=== PATIENT | male | born 1970 | race Caucasian/White ===

== ENCOUNTER 2018-03-14 13:01 | Emergency (ER) | payer SELFPAY ==
[2018-03-14 13:13] VITALS: BP 144/98; PULSE 71; TEMP 98; BMI 40.1
--- NOTE | 2018-03-14 15:12 | PDOC ---
History of Present Illness - General Chief Complaint: Blood Pressure Problem Stated Complaint: HEADACHE, HIGH BP Time Seen by Provider: 03/14/18 15:11 - History of Present Illness Initial Comments: 03/14/18 17:16 The patient is a 47 year old male with a history of HTN who presents for evaluation of headache. The patient reports a 5 day history of a diffuse poorly described headache that has not responded to tylenol, aleive, exedrine prompting his presentation to the ED for further evaluation. He noted that his blood pressure was a little elevated to day as well despite taking his home lisinopril. He otherwise denies fevers, chills, SOB, chest pain, nausea, vomiting, abdominal pain, numbness, tingling, weakness, or changes with urination or bowel movements. Past History - Past Medical History Allergies/Adverse Reactions: Allergies Allergy/AdvReac Type Severity Reaction Status Date / Time No Known Allergies Allergy Verified 03/14/18 13:13 Home Medications: Ambulatory Orders Dextroamphetamine/Amphetamine [Adderall Xr 30 mg Capsule] 30 mg PO DAILY Lisinopril [Prinivil] 20 mg PO DAILY 03/14/18 Vortioxetine Hydrobromide [Trintellix] 20 mg PO DAILY 03/14/18 COPD: No - Suicide/Smoking/Psychosocial Hx Smoking History: Never smoked Have you smoked in the past 12 months: No Information on smoking cessation initiated: No Hx Alcohol Use: No Drug/Substance Use Hx: No Substance Use Type: None Review of Systems - Review of Systems Comments:: 03/14/18 20:12 Constitutional: No fevers, chills, fatigue, malaise HEENT: No Rhinorrhea, nasal congestion, visual changes Cardiovascular: No chest pain, syncope, palpitations, lightheadedness Respiratory: No Cough, SOB, Hemoptysis, Gastrointestinal: No Abdominal pain, Nausea, Vomiting, Constipation, Diarrhea, Melena Genitourinary: No Dysuria, Frequency, Urgency, Hesitancy, Hematuria, Flank pain Musculoskeletal: No Myalgia, arthralgia Skin: No rashes, itching, bruising, pallor Neurologic: Headache. No Dizziness, Numbness, Weakness, or Tingling Psychiatric: No Hallucinations. No SI or HI *Physical Exam - Vital Signs Last Vital Signs Temp Pulse Resp BP Pulse Ox 98.0 F 71 16 144/98 100 03/14/18 13:12 03/14/18 13:12 03/14/18 13:12 03/14/18 13:12 03/14/18 13:12 - Physical Exam Comments: 03/14/18 20:12 General Appearance: Nourished. No Apparent Distress HEENT: EOMI, DREA. No Pharyngeal Erythema, Tonsillar Exudate, Tonsillar Erythema Neck: No Cervical Lymphadenopathy Respiratory/Chest: Lungs Clear, Normal Breath Sounds. No Crackles, Rales, Rhonchi, Wheezing Cardiovascular: Regular Rhythm, Regular Rate. No Murmur, Gallops, Rubs Gastrointestinal/Abdominal: Normal Bowel Sounds, Soft. No Guarding, Rebound, Tenderness Musculoskeletal: No CVA Tenderness Extremity: Normal Capillary Refill Integumentary: Normal Color, Dry, Warm Neurologic: ribbon inker II-XII NML intact, Fully Oriented, Alert, Normal Mood/Affect, Normal Response, Motor Strength 5/5. Normal Finger to Nose and Heel to [place] ED Treatment Course - LABORATORY CBC & Chemistry Diagram: 03/14/18 15:30 03/14/18 15:30 Medical Decision Making - Medical Decision Making 03/14/18 20:13 The patient is a 47 year old male with a history of HTN who presents for evaluation of headache. Differential includes but is not limited to: Infectious , Intracranial process, migraine, metabolic derangement. Given the patient's history and physical exam, we obtained a cbc, cmp, head ct. CBC, cmp were unremarkable. Head CT is unremarkable as read by our radiologist. We treated the patient with iv fluids, benadryl, reglan, iv tylenol and the patient reported mild improvement in his symptoms. We are comfortable discharging the patient home with neurology follow up. We discussed the results, plan, and return precautions with the patient who voiced understanding and is agreeable with the plan. *DC/Admit/Observation/Transfer Diagnosis at time of Disposition: Headache Qualifiers: Headache type: unspecified Headache chronicity pattern: unspecified pattern Intractability: not intractable Qualified Code(s): R51 - Headache - Discharge Dispostion Disposition: HOME Condition at time of disposition: Stable - Referrals Referrals: Reina Yung MD [Primary Care Provider] - Wu Humphries MD [Staff Physician] - - Patient Instructions Printed Discharge Instructions: DI for High Blood Pressure, DI for Headache Additional Instructions: Please return to the ER if you experience concerning or worsening symptoms including any worsening headache or weakness. Your lab results and head ct were normal here in the ER. Please call to schedule a follow up appointment with our neurologist Dr. Humphries within 2-3 days to discuss your ER visit and further management of your symptoms. - Post Discharge Activity
[2018-03-14] MEDS ORDERED: METOCLOPRAMIDE HCL INJECTION 10 MG/2 ML VIAL IVPUSH ONE (15:20)
[2018-03-14] MEDS ORDERED: SODIUM CHLORIDE 1,000 ML IV STA (15:20)
[2018-03-14] MEDS ORDERED: ACETAMINOPHEN 1000 MG/100 ML VIAL (NON FORMULARY) IVPB ONE (15:20)
[2018-03-14] MEDS ORDERED: ACETAMINOPHEN INJECTION 100 ML IVPB ONE (15:53)
[2018-03-14] MEDS ORDERED: METOCLOPRAMIDE HCL INJECTION 10 MG/2 ML VIAL ONE (15:53)
[2018-03-14 16:24] LABS: BASO % 0.6 % (0-2.0); EOS % 0.7 % (0-4.5); HEMATOCRIT 42.7 % (35.4-49); HEMOGLOBIN 14.4 GM/dL (11.7-16.9); MCH 30.1 pg (25.7-33.7); MCHC 33.8 g/dl (32.0-35.9); MEAN PLT VOLUME 8.4 fl (7.5-11.1); MONO % 6.3 % (3.8-10.2); NEUT % 72.4 % (42.8-82.8); PLATELET COUNT 295 K/MM3 (134-434); RDW 14.4 % (11.9-15.9); WHITE BLOOD COUNT 10.5 K/mm3 (4.0-10.0)
--- NOTE | 2018-03-14 16:24 | PDOC ---
Attending Attestation - Resident Resident Name: Darrel Schneider - ED Attending Attestation I have performed the following: I have examined & evaluated the patient, The case was reviewed & discussed with the resident, I agree w/resident's findings & plan, Exceptions are as noted - HPI HPI: 03/14/18 16:18 Mr Pruett is a 47 yo M who presents to the ER with a complaint of headache He was present in the ER bedside to his friend Patient states that he has had a headache for the past few days He awoke with a headache several days ago Described as tight, bandlike (+) nausea no vomiting No head trauma - Physicial Exam PE: 03/14/18 16:19 GENERAL: The patient is in no acute distress. EYES: PERRLA, EOMI, sclera anicteric, conjunctiva clear. NECK: Normal range of motion, supple, no nuchal rigidity LUNGS: Breath sounds equal, clear to auscultation bilaterally. No wheezes, and no crackles. HEART:Regular rate and rhythm, normal S1 and S2 without murmur, rub or gallop. ABDOMEN: Soft, nontender EXTREMITIES: Normal range of motion NEUROLOGICAL: Cranial nerves II through XII grossly intact. Normal speech. No focal neurological deficits. MUSCULOSKELETAL: Back non-tender to palpation, no CVA tenderness SKIN: Warm, Dry, normal turgor, no rashes or lesions noted. - Medical Decision Making 03/14/18 16:24 47 yo M presenting to the ER with a complaint of headache He awoke with these symptoms Pt in neurologically intact will check labs CT head Tylenol, Reglan, Benadryl, IVF Re Assess Signed out to Dr Rincon
[2018-03-14 16:48] LABS: ALBUMIN 4.7 g/dl (3.4-5.0); ALK PHOS 68 U/L (45-117); ANION GAP 10 MMOL/L (8-16); BILIRUBIN,TOTAL 0.4 mg/dL (0.2-1.0); BLOOD UREA NITROGEN 13 mg/dL (7-18); CALCIUM 9.6 mg/dL (8.5-10.1); CHLORIDE 104 mmol/L (98-107); CO2 27 mmol/L (21-32); CREATININE 0.8 mg/dL (0.7-1.3); GLUCOSE,RANDOM 81 mg/dL (74-106); POTASSIUM 4.3 mmol/L (3.5-5.1); SGOT/AST 18 U/L (15-37); SGPT/ALT 45 U/L (12-78); SODIUM 141 mmol/L (136-145); TOT PROT 7.9 g/dl (6.4-8.2)
== END 2018-03-14 18:58 | disposition home or self-care (01) ==
LOC: JER 13:01
PROC: 3E033GC Introduction of Other Therapeutic Substance into Peripheral Vein, Percutaneous Approach (ICD-10-PCS; principal; 2018-03-14)
PROC: 3E033GC Introduction of Other Therapeutic Substance into Peripheral Vein, Percutaneous Approach (ICD-10-PCS; 2018-03-14)
PROC: 3E033NZ Introduction of Analgesics, Hypnotics, Sedatives into Peripheral Vein, Percutaneous Approach (ICD-10-PCS; 2018-03-14)
DX: R51 Headache (principal); I10 Essential (primary) hypertension
CPT/HCPCS: 36415; 70450-TC; 80053; 85025; 99282-25; J0131; J7030

== ENCOUNTER 2019-02-08 18:19 | Emergency (ER) | payer OTHER ==
--- NOTE | 2019-02-08 18:28 | PDOC ---
Rapid Medical Evaluation Time Seen by Provider: 02/08/19 18:23 Medical Evaluation: Allergies Allergy/AdvReac Type Severity Reaction Status Date / Time No Known Allergies Allergy Verified 03/14/18 13:13 02/08/19 18:23 I have performed a brief in-person evaluation of this patient. The patient presents with a chief complaint of: 48 yo M w/ a h/o HTN sent by PMD for high blood pressure. Pt was having a headache, checked his BP which was high 183/125, he called his PMD who told him to come to the ED. Pt took clonidine 0.2mg at around 6 pm. Now c/o mild 2/10 SAMUEL on the top of his head. NO other complaints Pertinent physical exam findings: Pt with anxious affect. The patient will proceed to the ED for further evaluation.
[2019-02-08 18:32] VITALS: TEMP 98.2; BMI 39.5
[2019-02-08] MEDS ORDERED: METOCLOPRAMIDE HCL INJECTION 10 MG/2 ML VIAL IVPUSH ONE (19:11)
[2019-02-08] MEDS ORDERED: ACETAMINOPHEN 1000 MG/100 ML VIAL (NON FORMULARY) IVPB ONE (19:12)
--- NOTE | 2019-02-08 19:49 | PDOC ---
Documentation entered by Debbie Ordoñez SCRIBE, acting as scribe for Opal Segura DO. Opal Segura DO: This documentation has been prepared by the Smita diaz Xhesika, SCRIBE, under my direction and personally reviewed by me in its entirety. I confirm that the documentation accurately reflects all work, treatment, procedures, and medical decision making performed by me. History of Present Illness - General Chief Complaint: Blood Pressure Problem Stated Complaint: SENT BY DOCTOR Time Seen by Provider: 02/08/19 18:23 History Source: Patient Exam Limitations: No Limitations - History of Present Illness Initial Comments: 02/08/19 19:36 The patient is a 48 year old male with a significant PMH of HTN who presents to the emergency department for HTN and headache. The patient states he endorsed a headache, checked his BP and it was 175/118 at 1pm and shortly after it was 185/125. Patient states he took 2 Clonidine at 6pm with no relief. Patient States he then called his PCP and was advised to come to the ED for further evaluation. Patient notes his BP at baseline is 140/90. Patient denies any changes in vision. Denies numbness or tingling in arms. The patient denies chest pain, shortness of breath, and dizziness. Denies fever , chills, cough, nausea, vomiting, diarrhea and constipation. Denies dysuria, frequency, urgency and hematuria. Allergies: Morphine PCP: Reina Kemp I Past History - Past Medical History Allergies/Adverse Reactions: Allergies Allergy/AdvReac Type Severity Reaction Status Date / Time morphine AdvReac Verified 02/08/19 18:23 Home Medications: Ambulatory Orders Dextroamphetamine/Amphetamine [Adderall Xr 30 mg Capsule] 30 mg PO DAILY Lisinopril [Prinivil] 20 mg PO DAILY 03/14/18 Vortioxetine Hydrobromide [Trintellix] 20 mg PO DAILY 03/14/18 COPD: No HTN: Yes - Immunization History Immunization Up to Date: Yes - Suicide/Smoking/Psychosocial Hx Smoking History: Never smoked Have you smoked in the past 12 months: No Hx Alcohol Use: No Drug/Substance Use Hx: No Substance Use Type: None Review of Systems - Review of Systems Able to Perform ROS?: Yes Comments:: 02/08/19 19:37 GENERAL/CONSTITUTIONAL: No fever or chills. No weakness. HEAD, EYES, EARS, NOSE AND THROAT: No change in vision. No ear pain or discharge. No sore throat. CARDIOVASCULAR: (+) HTN. No chest pain or shortness of breath. RESPIRATORY: No cough, wheezing, or hemoptysis. GASTROINTESTINAL: No nausea, vomiting, diarrhea or constipation. GENITOURINARY: No dysuria, frequency, or change in urination. MUSCULOSKELETAL: No joint or muscle swelling or pain. No neck or back pain. SKIN: No rash NEUROLOGIC: (+) headache. No vertigo, loss of consciousness, or change in strength/sensation. ENDOCRINE:No increased thirst. No abnormal weight change. HEMATOLOGIC/LYMPHATIC: No anemia, easy bleeding, or history of blood clots. ALLERGIC/IMMUNOLOGIC: No hives or skin allergy. *Physical Exam - Vital Signs Last Vital Signs Temp Pulse Resp BP Pulse Ox 98.2 F 74 18 172/113 H 97 02/08/19 18:23 02/08/19 18:23 02/08/19 18:23 02/08/19 18:23 02/08/19 18:23 - Physical Exam Comments: 02/08/19 19:37 GENERAL: Awake, alert, and fully oriented, in no acute distress HEAD: No signs of trauma EYES: PERRLA, EOMI, sclera anicteric, conjunctiva clear ENT: Auricles normal inspection, hearing grossly normal, nares patent, oropharynx clear without exudates. Moist mucosa NECK: Normal ROM, supple, no lymphadenopathy, JVD, or masses LUNGS: Breath sounds equal, clear to auscultation bilaterally. No wheezes, and no crackles HEART: Regular rate and rhythm, normal S1 and S2, no murmurs, rubs or gallops ABDOMEN: Soft, nontender, normoactive bowel sounds. No guarding, no rebound. No masses EXTREMITIES: Normal range of motion, no edema. No clubbing or cyanosis. No cords, erythema, or tenderness NEUROLOGICAL: Cranial nerves II through XII grossly intact. Normal speech, normal gait SKIN: Warm, Dry, normal turgor, no rashes or lesions noted. Heart Score/ECG Review - ECG Intrepretation Comment:: 02/08/19 19:40 sinus at 66, nl axis, nl interval, rsr' in v1, qrs 102, no acute st/t wave findings ED Treatment Course - LABORATORY CBC & Chemistry Diagram: 02/08/19 19:45 02/08/19 19:45 - RADIOLOGY Radiology Studies Ordered: Category Date Time Status HEAD CT WITHOUT CONTRAST [CT] Stat CT Scan 02/08/19 19:10 Ordered CHEST X-RAY PORTABLE* [RAD] Stat Radiology 02/08/19 19:11 Ordered Medical Decision Making - Medical Decision Making 02/08/19 19:41 a/p: 48yo male with hx of htn with elevated bp today -has mathew today but without neuro symptoms/findings -no cp/sob -no blurred vision -no abd pain, no n/v/d -no changes in diet, compliant with meds and took 2 extra clonidine -will send labs, head ct, ekg, cxr, ua -will monitor and reassess -reglan and tylenol 02/08/19 21:[address] neg repeat bp improved labs pending 02/08/19 21:36 trop neg 02/08/19 22:00 cxr clear 02/08/19 22:06 discussed labs and imaging with the patient pt feeling better bp improved stable for dc to home and follow up with PMD. *DC/Admit/Observation/Transfer Diagnosis at time of Disposition: Headache, Uncontrolled hypertension - Discharge Dispostion Disposition: HOME Condition at time of disposition: Stable Decision to Admit order: No - Referrals Referrals: Reina Yung MD [Primary Care Provider] - - Patient Instructions Printed Discharge Instructions: DI for High Blood Pressure, How to Monitor Your Blood Pressure at Home Additional Instructions: Please continue to take all medications as prescribed. Please return to the ED with any further concerns or complaints. Please continue to take all blood pressure medications as prescribed. Please call your PMD for a repeat blood pressure check. Please return to the ED with any further concerns or complaints. - Post Discharge Activity - Attestations Physician Attestion: 02/08/19 22:10 I, Dr. Opal Segura, DO, attest that this document has been prepared under my direction and personally reviewed by me in its entirety. I further attest, that it accurately reflects all work, treatment, procedures and medical decision -making performed by me.
[2019-02-08 20:01] LABS: BASO % 0.7 % (0-2.0); EOS % 1.5 % (0-4.5); HEMATOCRIT 43.8 % (35.4-49); LYMPH % 22.1 % (8-40); MCH 30.9 pg (25.7-33.7); MCHC 34.2 g/dl (32.0-35.9); MEAN CELL VOLUME 90.3 fl (80-96); MEAN PLT VOLUME 7.9 fl (7.5-11.1); NEUT % 65.7 % (42.8-82.8); PLATELET COUNT 264 K/MM3 (134-434); RBC 4.85 M/mm3 (4.00-5.60); RDW 14.6 % (11.9-15.9); WHITE BLOOD COUNT 10.2 K/mm3 (4.0-10.0)
[2019-02-08] MEDS ORDERED: ACETAMINOPHEN INJECTION 100 ML IVPB ONE (20:02)
[2019-02-08] MEDS ORDERED: METOCLOPRAMIDE HCL INJECTION 10 MG/2 ML VIAL ONE (20:02)
[2019-02-08 20:15] LABS: INR 0.88 (0.83-1.09); PROTHROMBIN TIME (PATIENT) 10.4 SEC (9.7-13.0)
[2019-02-08 21:33] LABS: ALBUMIN 3.8 g/dl (3.4-5.0); BILIRUBIN,TOTAL 0.3 mg/dL (0.2-1); BLOOD UREA NITROGEN 11.2 mg/dL (7-18); CALCIUM 9.4 mg/dL (8.5-10.1); N-TERMINAL BNP 80.7 pg/ml (5-125); POTASSIUM 4.5 mmol/L (3.5-5.1); TOT PROT 6.8 g/dl (6.4-8.2)
[2019-02-08] MEDS ORDERED: IBUPROFEN 600 MG TABLET (FP) PO ONE ×2 (22:04→22:20)
[2019-02-08 22:58] VITALS: BP 145/92; PULSE 66
--- NOTE | 2019-02-09 14:11 | EKG ---
Test Reason : Blood Pressure : / mmHG Vent. Rate : 066 BPM Atrial Rate : 066 BPM P-R Int : 176 ms QRS Dur : 102 ms QT Int : 386 ms P-R-T Axes : 023 028 061 degrees QTc Int : 404 ms NORMAL SINUS RHYTHM RSR' OR QR PATTERN IN V1 SUGGESTS RIGHT VENTRICULAR CONDUCTION DELAY NO PREVIOUS ECGS AVAILABLE Confirmed by MARBELLA SWAN MD ([id number]) on 02/09/2019 2:11:17 PM Referred By: Confirmed By:MARBELLA SWAN MD
== END 2019-02-08 22:20 | disposition home or self-care (01) ==
LOC: JER 18:19
PROC: 3E033GC Introduction of Other Therapeutic Substance into Peripheral Vein, Percutaneous Approach (ICD-10-PCS; principal; 2019-02-08)
PROC: 3E033NZ Introduction of Analgesics, Hypnotics, Sedatives into Peripheral Vein, Percutaneous Approach (ICD-10-PCS; 2019-02-08)
DX: I10 Essential (primary) hypertension (principal)
CPT/HCPCS: 36415; 70450-TC; 71045-TC-FY; 80053; 82550; 82553; 83880; 84484; 85025; 85610; 93005; 93010; 99283-25; J0131

== ENCOUNTER 2020-06-22 16:36 | Emergency (ER) | payer OTHER ==
[2020-06-22 16:44] VITALS: BMI 33.1
[2020-06-22] MEDS ORDERED: ACETAMINOPHEN INJECTION 100 ML IVPB ONE (18:11)
[2020-06-22] MEDS ORDERED: ONDANSETRON 4 MG/2 ML VIAL ONE (18:11)
[2020-06-22] MEDS ORDERED: ONDANSETRON 4 MG/2 ML VIAL IVPUSH ONE (18:12)
[2020-06-22] MEDS ORDERED: ACETAMINOPHEN 1000 MG/100 ML VIAL (NON FORMULARY) IVPB ONE (18:12)
[2020-06-22 18:28] VITALS: TEMP 98
[2020-06-22 18:30] LABS: BASO % 0.5 % (0-2.0); EOS % 0.9 % (0-4.5); HEMATOCRIT 40.9 % (35.4-49); HEMOGLOBIN 13.7 GM/dL (11.7-16.9); LYMPH % 11.4 % (8-40); MCH 30.7 pg (25.7-33.7); MCHC 33.4 g/dl (32.0-35.9); MEAN CELL VOLUME 91.8 fl (80-96); MEAN PLT VOLUME 7.5 fl (7.5-11.1); MONO % 7.3 % (3.8-10.2); NEUT % 79.9 % (42.8-82.8); PLATELET COUNT 250 K/MM3 (134-434); RBC 4.45 M/mm3 (4.00-5.60); RDW 13.8 % (11.9-15.9)
[2020-06-22 18:39] LABS: CHLORIDE 104 mmol/L (98-107); POTASSIUM 4.6 mmol/L (3.5-5.1); SODIUM 141 mmol/L (136-145)
[2020-06-22 18:41] LABS: CALCIUM 9.5 mg/dL (8.5-10.1)
[2020-06-22 18:42] LABS: ANION GAP 7 MMOL/L (8-16); BLOOD UREA NITROGEN 14.2 mg/dL (7-18); CO2 31 mmol/L (21-32); GLUCOSE,RANDOM 88 mg/dL (74-106)
[2020-06-22 18:45] LABS: CREATININE 1.2 mg/dL (0.55-1.3); SGOT/AST 27 U/L (15-37)
[2020-06-22 18:46] LABS: BILIRUBIN,TOTAL 0.3 mg/dL (0.2-1)
[2020-06-22 18:47] LABS: TOT PROT 6.9 g/dl (6.4-8.2)
[2020-06-22 18:48] LABS: ALK PHOS 61 U/L (45-117)
[2020-06-22 18:54] LABS: SGPT/ALT 39 U/L (13-61)
[2020-06-22 19:41] VITALS: BP 152/109; PULSE 83
[2020-06-22 19:59] LABS: EPI CELLS 3 /uL (0-25.1); HYALINE CASTS 0 /uL (0-3.1); URINE APPEARANCE CLEAR; URINE BACTERIA 10 /uL (0-1359); URINE BILIRUBIN NEGATIVE (NEGATIVE); URINE COLOR YELLOW; URINE GLUCOSE (UA) NEGATIVE (NEGATIVE); URINE KETONE NEGATIVE (NEGATIVE); URINE LEUK ESTERASE NEGATIVE (NEGATIVE); URINE NITRITE NEGATIVE (NEGATIVE); URINE PROTEIN NEGATIVE (NEGATIVE); URINE RBC 51 /uL (0-23.9); URINE UROBILINOGEN 0.2 mg/dL (0.2-1.0); URINE WBC 6 /uL (0-25.8)
== END 2020-06-22 19:56 | disposition home or self-care (01) ==
LOC: JER 16:36
PROC: 3E0333Z Introduction of Anti-inflammatory into Peripheral Vein, Percutaneous Approach (ICD-10-PCS; principal; 2020-06-22)
PROC: 3E033GC Introduction of Other Therapeutic Substance into Peripheral Vein, Percutaneous Approach (ICD-10-PCS; 2020-06-22)
DX: I10 Essential (primary) hypertension (principal)
CPT/HCPCS: 36415; 80053; 81003; 82550; 82553; 82962; 84484; 85025; 93005; 93010; 99284-25; J0131

== ENCOUNTER 2021-03-31 16:44 | Inpatient (IN) | payer OTHER ==
[2021-03-31] MEDS ORDERED: METOCLOPRAMIDE HCL INJECTION 10 MG/2 ML VIAL IVPUSH ONE (18:44)
[2021-03-31] MEDS ORDERED: METOCLOPRAMIDE HCL INJECTION 10 MG/2 ML VIAL ONE (18:49)
[2021-03-31 19:06] LABS: VENOUS BASE EXCESS -4.8 mmol/L (-2-2); VENOUS O2 SATURATION 55.9 % (70-80); VENOUS PCO2 51.4 mmHg (38-52); VENOUS PH 7.261 (7.310-7.410)
[2021-03-31 19:10] LABS: BASO % 0.4 % (0-2.0); EOS % 0.4 % (0-4.5); LYMPH % 7.7 % (8-40); MCH 31.9 pg (25.7-33.7); MCHC 34.3 g/dl (32.0-35.9); MEAN CELL VOLUME 92.8 fl (80-96); MEAN PLT VOLUME 7.3 fl (7.5-11.1); MONO % 6.3 % (3.8-10.2); NEUT % 85.2 % (42.8-82.8); PLATELET COUNT 272 10^3/uL (134-434); RBC 3.77 M/mm3 (4.00-5.60); RDW 14.3 % (11.9-15.9); WHITE BLOOD COUNT 12.2 K/mm3 (4.0-10.0)
[2021-03-31 19:20] LABS: INR 0.9 (0.83-1.09)
[2021-03-31 19:23] LABS: ACTIVATED PTT 31.5 SECONDS (25.2-36.5)
[2021-03-31 19:27] LABS: CHLORIDE 105 mmol/L (98-107); SODIUM 136 mmol/L (136-145)
[2021-03-31 19:29] LABS: ALBUMIN 4.7 g/dl (3.4-5.0); ANION GAP 6 MMOL/L (8-16); CALCIUM 9.7 mg/dL (8.5-10.1); CO2 25 mmol/L (21-32)
[2021-03-31 19:30] LABS: BLOOD UREA NITROGEN 28.6 mg/dL (7-18); GLUCOSE,RANDOM 110 mg/dL (74-106); LIPASE 149 U/L (73-393); MAGNESIUM 2.1 mg/dL (1.8-2.4)
[2021-03-31 19:32] LABS: CREATININE 1.8 mg/dL (0.55-1.3); SGOT/AST 29 U/L (15-37); SGPT/ALT 45 U/L (13-61)
[2021-03-31 19:34] LABS: BILIRUBIN,TOTAL 0.4 mg/dL (0.2-1); TOT PROT 7.9 g/dl (6.4-8.2)
[2021-03-31 19:35] LABS: ALK PHOS 83 U/L (45-117)
[2021-03-31] MEDS ORDERED: LACTATED RINGERS SOLUTION 1000 ML INFUS.BAG IV ONE ×2 (19:36→21:11)
[2021-03-31] MEDS ORDERED: ALPRAZolam 1 MG TABLET PO PRN (20:12)
[2021-03-31 20:30] LABS: URINE APPEARANCE CLEAR; URINE BILIRUBIN NEGATIVE (NEGATIVE); URINE COLOR YELLOW; URINE GLUCOSE (UA) NEGATIVE (NEGATIVE); URINE KETONE NEGATIVE (NEGATIVE); URINE LEUK ESTERASE NEGATIVE (NEGATIVE); URINE NITRITE NEGATIVE (NEGATIVE); URINE PROTEIN TRACE (NEGATIVE); URINE UROBILINOGEN 0.2 mg/dL (0.2-1.0)
[2021-03-31] MEDS ORDERED: ALPRAZolam 1 MG TABLET ONE (20:49)
[2021-03-31] MEDS ORDERED: ACETAMINOPHEN 325 MG TABLET (FP) PO PRN (22:45)
[2021-03-31] MEDS ORDERED: D5-1/2NS+10 MEQ KCL - 10 MEQ/1,000 ML INFUS.BAG IV SCH (22:45)
[2021-04-01] MEDS ORDERED: DOCUSATE SODIUM 100 MG CAPSULE (FP) PO ONE ×2 (00:45→13:17)
[2021-04-01] MEDS ORDERED: cloNIDine HCL 0.1 MG TABLET ONE ×2 (00:45→09:15)
[2021-04-01] MEDS ORDERED: ENOXAPARIN NA (PORCINE) 40 MG/0.4 ML DISP.SYRIN SQ ONE ×2 (00:45→09:17)
[2021-04-01] MEDS: cloNIDine HCL 0.1 MG TABLET PO SCH ×3 (01:29→21:24)
[2021-04-01] MEDS: DOCUSATE SODIUM 100 MG CAPSULE (FP) PO SCH ×4 (01:29→21:24)
[2021-04-01] MEDS: ENOXAPARIN NA (PORCINE) 40 MG/0.4 ML DISP.SYRIN SQ SCH ×2 (01:30→09:41)
[2021-04-01] MEDS ORDERED: oxyCODONE HCL 5 MG TABLET ONE (02:28)
[2021-04-01] MEDS: oxyCODONE HCL 5 MG TABLET PO PRN ×2 (02:30→21:24)
[2021-04-01 06:15] LABS: BASO % 0.2 % (0-2.0); EOS % 0.1 % (0-4.5); HEMATOCRIT 34.4 % (35.4-49); HEMOGLOBIN 11.8 GM/dL (11.7-16.9); LYMPH % 9.1 % (8-40); MCH 32.3 pg (25.7-33.7); MCHC 34.3 g/dl (32.0-35.9); MEAN CELL VOLUME 94.1 fl (80-96); MEAN PLT VOLUME 7.6 fl (7.5-11.1); MONO % 5.1 % (3.8-10.2); NEUT % 85.5 % (42.8-82.8); PLATELET COUNT 273 10^3/uL (134-434); RBC 3.66 M/mm3 (4.00-5.60); RDW 14.5 % (11.9-15.9); WHITE BLOOD COUNT 7.9 K/mm3 (4.0-10.0)
[2021-04-01 06:34] LABS: BLOOD UREA NITROGEN 22.3 mg/dL (7-18)
[2021-04-01 06:37] LABS: CREATININE 1.4 mg/dL (0.55-1.3)
[2021-04-01] MEDS ORDERED: FOLIC ACID 1 MG TABLET (FP) ONE (09:15)
[2021-04-01] MEDS ORDERED: LISINOPRIL 20 MG TABLET ONE (09:15)
[2021-04-01] MEDS ORDERED: PT OWN MED DRAWER 7, Y5N ONE (09:16)
[2021-04-01] MEDS ORDERED: PANTOPRAZOLE SODIUM 40 MG VIAL ONE (09:17)
[2021-04-01] MEDS: NEBIVOLOL 5 MG TABLET (FP) PO SCH (09:41)
[2021-04-01] MEDS: FOLIC ACID 1 MG TABLET (FP) PO SCH (09:41)
[2021-04-01] MEDS: PANTOPRAZOLE SODIUM 40 MG VIAL IVPUSH SCH (09:42)
[2021-04-01] MEDS: LISINOPRIL 20 MG TABLET PO SCH (09:42)
[2021-04-01] MEDS ORDERED: ALPRAZolam 1 MG TABLET PO SCH (10:00)
[2021-04-01] MEDS ORDERED: ALPRAZolam 1 MG TABLET ONE (13:24)
[2021-04-01] MEDS: ALPRAZolam 1 MG TABLET PO PRN ×2 (13:26→21:24)
[2021-04-01] MEDS: D5-1/2NS+10 MEQ KCL - 10 MEQ/1,000 ML INFUS.BAG IV SCH (15:12)
[2021-04-01 20:24] VITALS: BMI 41.2
[2021-04-02] MEDS: DOCUSATE SODIUM 100 MG CAPSULE (FP) PO SCH (06:43)
[2021-04-02 07:37] LABS: BASO % 0.7 % (0-2.0); EOS % 1.8 % (0-4.5); HEMATOCRIT 30.7 % (35.4-49); HEMOGLOBIN 10.8 GM/dL (11.7-16.9); LYMPH % 20.9 % (8-40); MCH 32.2 pg (25.7-33.7); MCHC 35.2 g/dl (32.0-35.9); MEAN CELL VOLUME 91.7 fl (80-96); MEAN PLT VOLUME 7.4 fl (7.5-11.1); MONO % 9.1 % (3.8-10.2); NEUT % 67.5 % (42.8-82.8); PLATELET COUNT 255 10^3/uL (134-434); RBC 3.35 M/mm3 (4.00-5.60); RDW 14.4 % (11.9-15.9); WHITE BLOOD COUNT 7.6 K/mm3 (4.0-10.0)
[2021-04-02 07:42] LABS: CALCIUM 9.3 mg/dL (8.5-10.1)
[2021-04-02 07:43] LABS: BLOOD UREA NITROGEN 22.4 mg/dL (7-18)
[2021-04-02 07:46] LABS: CREATININE 1.2 mg/dL (0.55-1.3)
[2021-04-02] MEDS: ALPRAZolam 1 MG TABLET PO PRN (10:14)
[2021-04-02] MEDS: LISINOPRIL 20 MG TABLET PO SCH (10:14)
[2021-04-02] MEDS: cloNIDine HCL 0.1 MG TABLET PO SCH (10:14)
[2021-04-02] MEDS: FOLIC ACID 1 MG TABLET (FP) PO SCH (10:15)
[2021-04-02] MEDS: ENOXAPARIN NA (PORCINE) 40 MG/0.4 ML DISP.SYRIN SQ SCH (10:15)
[2021-04-02] MEDS: NEBIVOLOL 5 MG TABLET (FP) PO SCH (10:15)
[2021-04-02] MEDS: PANTOPRAZOLE SODIUM 40 MG VIAL IVPUSH SCH (10:15)
[2021-04-02 11:24] VITALS: BP 105/64; PULSE 72; TEMP 98.2
[2021-04-02] MEDS: D5-1/2NS+10 MEQ KCL - 10 MEQ/1,000 ML INFUS.BAG IV SCH (11:53)
== END 2021-04-02 14:10 | disposition home or self-care (01) | DRG 683 ==
LOC: JER 16:44 → JERBED 21:36 → J4W 04-01 18:44
PROVIDERS: ADMIT Internal Medicine; ATTEND Internal Medicine
DX: N17.9 Acute kidney failure, unspecified (principal); Z68.41 Body mass index [BMI] 40.0-44.9, adult; R11.0 Nausea; M62.81 Muscle weakness (generalized); F41.9 Anxiety disorder, unspecified; G25.1 Drug-induced tremor; K21.9 Gastro-esophageal reflux disease without esophagitis; D72.829 Elevated white blood cell count, unspecified; I10 Essential (primary) hypertension; E66.01 Morbid (severe) obesity due to excess calories
CPT/HCPCS: 36415; 80048; 80053; 80178; 81003; 82550; 82553; 82803; 82962; 83690; 83735; 84484; 85025; 85610; 85730; 87086; 93005; 93010; 97116-GP; 97161-GP; 99285-25; C9803; J0735; U0003; U0005